=== PATIENT | male | born 1960 | race Caucasian/White ===

== ENCOUNTER → 2017-01-30 | Outpatient (CLI) | payer OTHER ==
--- NOTE | ~2017-01-30 | TM ---
[id number] NAME: SATNAM CARRANZA MR#: [id number] PROCEDURE PERFORMED Treadmill stress test. DESCRIPTION Resting heart rate is 56. Resting blood pressure is 120/70 mmHg. Baseline EKG shows sinus bradycardia at a heart rate of 56 beats per minute. Steep T wave inversions in the inferior and the lateral leads. PROCEDURE Patient was made to exercise on a standard Cornelio protocol. Total exercise time is 9 minutes and 12 seconds, completing stage 3 on a standard Cornelio protocol. Test stopped because of shortness of breath. No complaints of chest pain, neck pain, arm pain or jaw pain. Maximal heart rate obtained is 141, which is 85% of maximum predicted heart rate. Maximal blood pressure obtained is 150/90 mmHg. Patient had a lot of artifact during the exercise portion of the stress test. Patient continued to have the T wave inversions in the inferior and the lateral leads during exercise, at peak exercise and during recovery. No arrhythmias seen. CONCLUSION 1. Fair exercise tolerance. 2. There is no clinical, hemodynamic or EKG evidence of ischemia at moderate workload (85% of maximum predicted heart rate, 10.1 METS). 3. Normal heart rate and blood pressure response. 4. Normal regular treadmill stress test. 5. It must be noted that the patient's EKG had a lot of artifact when he exercised on the treadmill. Clinical correlation is requested. Dictated by...
== END | disposition home or self-care (01) ==
LOC: CEKG 09:24
DX: Z02.1 Encounter for pre-employment examination (principal); I25.10 Atherosclerotic heart disease of native coronary artery without angina pectoris; I21.3 ST elevation (STEMI) myocardial infarction of unspecified site
CPT/HCPCS: 93017